=== PATIENT | female | born 1980 | race Caucasian/White ===

== ENCOUNTER → 2018-09-02 | Outpatient (CLI) | payer OTHER ==
[~2018-09-02] MED LIST: AZIT250 PO; CEPH500 PO; CIPRSO OD; CLIN300 PO; CODGUAEL PO; Cleocin HCl300 MG PO; FAMO20 PO; HYDACE5 PO; METF500 PO; METPRE4DP PO; NAPR500 PO; OMEP20ER PO; ORTHOTRICYCLINE PO; PRED10 PO; RXNEOPOLHC AD; SULTRIDS PO
== END ==
LOC: LAB SHORT 14:12 → LAB 14:12 → LAB FUT 08-12 15:15
DX: K21.9 Gastro-esophageal reflux disease without esophagitis (principal)
CPT/HCPCS: 87338

== ENCOUNTER → 2019-08-20 | Outpatient (CLI) | payer OTHER ==
[2019-08-24 02:06] LABS: CHLAMYDIA TRACHOMATIS, NAA Negative (Negative); NEISSERIA GONORRHOEAE, NAA Negative (Negative)
[2019-08-24 16:07] LABS: HPV 16 Negative (Negative); HPV 18 Negative (Negative); HPV OTHER HR TYPES Negative (Negative)
== END ==
LOC: LAB 13:55 → LAB SHORT 13:55
PROVIDERS: Nurse Practitioner Family
DX: Z01.419 Encounter for gynecological examination (general) (routine) without abnormal findings (principal)
CPT/HCPCS: 87070; 87205; 87491; 87591; 87624; G0123

== ENCOUNTER 2019-11-04 12:19 | Emergency (ER) | payer OTHER ==
[~2019-11-04] VITALS: Ht 160 cm; Wt 108.9 kg
== END 2019-11-04 13:26 | disposition home or self-care (01) ==
LOC: ER 12:19
DX: F07.81 Postconcussional syndrome (principal); K21.9 Gastro-esophageal reflux disease without esophagitis; Z88.0 Allergy status to penicillin; Z88.2 Allergy status to sulfonamides; Z79.899 Other long term (current) drug therapy; Z87.891 Personal history of nicotine dependence
CPT/HCPCS: 99283

== ENCOUNTER 2020-08-16 10:24 | Emergency (ER) | payer OTHER ==
[~2020-08-16] VITALS: Ht 160 cm; Wt 113.4 kg
[2020-08-16] MEDS ORDERED: NAPROXEN250 MG PO (11:57)
== END 2020-08-16 12:05 | disposition home or self-care (01) ==
LOC: ER 10:24
DX: M25.512 Pain in left shoulder (principal); F17.210 Nicotine dependence, cigarettes, uncomplicated; Z79.84 Long term (current) use of oral hypoglycemic drugs; Z79.899 Other long term (current) drug therapy; Z88.0 Allergy status to penicillin; Z88.8 Allergy status to other drugs, medicaments and biological substances; Z88.2 Allergy status to sulfonamides
CPT/HCPCS: 73030; 99283-25